=== PATIENT | female | born 1980 | race Caucasian/White ===

== ENCOUNTER 2019-02-01 08:51 | Emergency (ER) | payer OTHER | END 2019-02-01 10:22 | disposition home or self-care (01) | LOC: FTE 08:51 | DX: S50.361A Insect bite (nonvenomous) of right elbow, initial encounter (principal); W57.XXXA Bitten or stung by nonvenomous insect and other nonvenomous arthropods, initial encounter; Y92.9 Unspecified place or not applicable | CPT/HCPCS: 99283; Z7502 ==